=== PATIENT | male | born 1945 | race Caucasian/White ===

== ENCOUNTER → 2017-02-18 | Outpatient (CLI) | payer MEDICARE | END | disposition home or self-care (01) | LOC: CARD 16:16 | PROVIDERS: ATTEND Family Medicine | DX: R06.02 Shortness of breath (principal) | CPT/HCPCS: 94060; 94726; 94729 ==

== ENCOUNTER 2017-06-03 06:32 | Observation (INO) | payer MEDICARE ==
[2017-06-02 10:05] VITALS: BP 123/78
[2017-06-02 10:35] LABS: BASOPHILS % (AUTO) 1 % (0-1); EOSINOPHILS % (AUTO) 2 % (1-7); LYMPHOCYTES # (AUTO) 2.83 x10^3/uL (1-3.4); LYMPHOCYTES % (AUTO) 34 % (22-44); MEAN CORPUSCULAR HEMOGLOBIN 32.9 pg (27.5-34.5); MEAN CORPUSCULAR HGB CONC 34.3 g/dL (33.2-36.2); MEAN CORPUSCULAR VOLUME 95.8 fL (81-97); MEAN PLATELET VOLUME 6.3 fL (7.4-10.4); MONOCYTES % (AUTO) 9 % (2-9); NEUTROPHILS # (AUTO) 4.66 x10^3/uL (1.8-6.8); NEUTROPHILS % (AUTO) 55 % (42-75); PLATELET COUNT 322 x10^3/uL (130-400); RED BLOOD COUNT 4.88 x10^6/uL (4.38-5.82); RED CELL DISTRIBUTION WIDTH 12.8 % (9.4-14.8)
[2017-06-02 10:36] LABS: BASOPHILS # (AUTO) 0.05 x10^3/uL (0-0.1); EOSINOPHILS # (AUTO) 0.19 x10^3/uL (0-0.4); MD NO; MONOCYTES # (AUTO) 0.72 x10^3/uL (0.2-0.8)
[2017-06-02 10:49] LABS: ALANINE AMINOTRANSFERASE 20 U/L (12-78); ALBUMIN 3.8 g/dL (3.4-5.0); ANION GAP 7 mmol/L (5-15); CALCIUM 8.7 mg/dL (8.5-10.1); CHLORIDE 102 mmol/L (98-107); CREATININE 0.84 mg/dL (0.7-1.3)
[2017-06-02 10:51] LABS: ALKALINE PHOSPHATASE 95 U/L (45-117); BILIRUBIN,TOTAL 0.6 mg/dL (0.2-1.0)
[~2017-06-03] VITALS: Ht 185.4 cm; Wt 93.1 kg
[~2017-06-03 06:32] MED LIST: ALBU8.5H8 INH; CARB1TAB PO; CHLO25TA PO; LOSA100T6 PO; UMEC1DIS INH
[2017-06-03] MEDS ORDERED: SODIUM CHLORIDE 0.9% 1,000 ML IV SCH (06:49)
[2017-06-03 07:05] VITALS: BP 123/78
[2017-06-03] MEDS ORDERED: CEFAZOLIN 1,000 MG ONE (07:36)
[2017-06-03] MEDS ORDERED: LIDOCAINE 2%, 20ML ONE (07:36)
[2017-06-03] MEDS ORDERED: FENTANYL PF 100 MCG/2ML ONE (07:36)
[2017-06-03] MEDS ORDERED: MIDAZOLAM 1 MG/ML, 5ML ONE (07:36)
[2017-06-03] MEDS ORDERED: CEFAZOLIN PMX 1GM/50ML 50 ML ONE (07:36)
[2017-06-03] MEDS ORDERED: LOSARTAN 50MG TABLET PO SCH ×2 (09:00→18:00)
[2017-06-03] MEDS ORDERED: HYDROcodone/APAP 5/325 TABLET PO PRN (09:00)
[2017-06-03] MEDS: CARBIDOPA/LEVODOPA 10 MG/100 MG TABLET PO SCH ×3 (09:00→22:32)
[2017-06-03] MEDS: CHLORTHALIDONE 25 MG TABLET PO SCH (09:00)
[2017-06-03] MEDS ORDERED: ACETAMINOPHEN 325 MG TABLET PO PRN (09:00)
[2017-06-03] MEDS ORDERED: ZOLPIDEM 5MG TABLET PO PRN (09:00)
[2017-06-03 09:55] VITALS: BP 120/76
[2017-06-03] MEDS ORDERED: ALBUTEROL SULFATE 2.5 MG/3 ML NPPB PRN (10:30)
[2017-06-03] MEDS: SODIUM CHLORIDE FLUSH 10ML SYR IVF SCH ×2 (10:35→22:33)
[2017-06-03 13:47] VITALS: BP 132/78
[2017-06-03] MEDS: CEFAZOLIN PMX 1GM/50ML 50 ML IVPB SCH (16:04)
[2017-06-03 18:40] VITALS: BP 111/65
[2017-06-04] MEDS: CEFAZOLIN PMX 1GM/50ML 50 ML IVPB SCH (00:18)
[2017-06-04 01:44] VITALS: BP 126/67
[2017-06-04 08:01] VITALS: BP 125/74
[2017-06-04] MEDS: SODIUM CHLORIDE FLUSH 10ML SYR IVF SCH (08:17)
[2017-06-04] MEDS: CHLORTHALIDONE 25 MG TABLET PO SCH (08:17)
[2017-06-04] MEDS: CARBIDOPA/LEVODOPA 10 MG/100 MG TABLET PO SCH (08:18)
== END 2017-06-04 09:10 | disposition home or self-care (01) ==
LOC: CACL 06:32 → ORIP 08:32 → 5SO 09:57 → DCLOUNGE 06-04 09:00
PROVIDERS: ADMIT Internal Medicine Cardiovascular Disease; ATTEND Internal Medicine Cardiovascular Disease
DX: R00.1 Bradycardia, unspecified (principal); R55 Syncope and collapse; I10 Essential (primary) hypertension; E78.2 Mixed hyperlipidemia; Z71.6 Tobacco abuse counseling
CPT/HCPCS: 33208; 36415; 71045; 71046; 80053; 85025; 96365; 96375; 99156; 99157; C1779; C1785; C1892; G0378; J0690; J2250; J3010; J3490

== ENCOUNTER → 2017-08-11 | Outpatient (CLI) | payer MEDICARE | LOC: RAD 08:35 | PROVIDERS: ATTEND Orthopaedic Surgery | DX: M50.323 Other cervical disc degeneration at C6-C7 level (principal); M25.78 Osteophyte, vertebrae; Z95.0 Presence of cardiac pacemaker | CPT/HCPCS: 72141 ==

== ENCOUNTER → 2018-06-03 | Outpatient (CLI) | payer MEDICARE ==
[~2018-06-03] MED LIST changes: +LOSA100T14 PO; -LOSA100T6 PO; +OMNIPAQUE 350 MG/ML, 75ML BOTTLE ONE
[2018-06-03 14:33] LABS: CREATININE 0.88 mg/dL (0.7-1.3)
== END | disposition home or self-care (01) ==
LOC: RAD 13:54
PROVIDERS: ATTEND Family Medicine
DX: R93.89 Abnormal findings on diagnostic imaging of other specified body structures (principal)
CPT/HCPCS: 36415; 71260; 82565; Q9967

== ENCOUNTER → 2018-08-03 | Outpatient (CLI) | payer MEDICARE | END | disposition home or self-care (01) | LOC: CFH 10:02 | PROVIDERS: ATTEND Family Medicine | DX: J98.11 Atelectasis (principal); R91.1 Solitary pulmonary nodule; Z95.0 Presence of cardiac pacemaker; M47.814 Spondylosis without myelopathy or radiculopathy, thoracic region | CPT/HCPCS: 71260; 82565; Q9967 ==

== ENCOUNTER 2019-09-03 11:05 | Day surgery (SDC) | payer MEDICARE ==
[~2019-09-03 11:05] MED LIST changes: -OMNIPAQUE 350 MG/ML, 75ML BOTTLE ONE
[2019-09-03] MEDS ORDERED: OMNIPAQUE 180 MG/ML, 10ML VIAL ONE (13:00)
== END 2019-09-03 16:45 | disposition home or self-care (01) ==
LOC: OUT 11:05
PROVIDERS: ATTEND Nurse Practitioner
DX: M54.16 Radiculopathy, lumbar region (principal); M48.061 Spinal stenosis, lumbar region without neurogenic claudication; I10 Essential (primary) hypertension; J44.9 Chronic obstructive pulmonary disease, unspecified; E78.00 Pure hypercholesterolemia, unspecified; F17.210 Nicotine dependence, cigarettes, uncomplicated; Z79.899 Other long term (current) drug therapy; Z82.3 Family history of stroke; Z80.9 Family history of malignant neoplasm, unspecified
CPT/HCPCS: 62284; 72132; Q9965

== ENCOUNTER → 2020-08-22 | Outpatient (CLI) | payer MEDICARE ==
[~2020-08-22] MED LIST changes: -CARB1TAB PO; +OMNIPAQUE 350 MG/ML, 150 ML BOTTLE ONE; +[UNRECOGNIZED DRUG - CODE] PO
== END | disposition home or self-care (01) ==
LOC: CFH 08:40
PROVIDERS: ATTEND Urology
DX: R31.0 Gross hematuria (principal)
CPT/HCPCS: 74178; Q9967

== ENCOUNTER → 2020-10-27 | Outpatient (CLI) | payer MEDICARE ==
[~2020-10-27] MED LIST changes: +AMLO-150 PO; +ASPI81TA45 PO; +BUDE10.2 INH; +METO25TA35 PO; -OMNIPAQUE 350 MG/ML, 150 ML BOTTLE ONE; +TAMS-11 PO; +TELM40TA PO; +TOPI25TA8 PO
[2020-10-27 08:27] LABS: MICROSCOPIC AUTO
[2020-10-27 08:50] LABS: ALANINE AMINOTRANSFERASE 30 U/L (12-78); ALBUMIN 3.6 g/dL (3.4-5.0); ANION GAP 5 mmol/L (5-15); CHLORIDE 111 mmol/L (98-107)
[2020-10-27 08:52] LABS: ALKALINE PHOSPHATASE 90 U/L (45-117); BILIRUBIN,TOTAL 0.6 mg/dL (0.2-1.0)
== END | disposition home or self-care (01) ==
LOC: STAR 06:53
PROVIDERS: ATTEND Urology
DX: Z01.812 Encounter for preprocedural laboratory examination (principal); Z20.822 Contact with and (suspected) exposure to COVID-19; N32.89 Other specified disorders of bladder
CPT/HCPCS: 36415; 80053; 81001; 87086; 93005; U0003; U0005

== ENCOUNTER 2020-11-02 09:38 | Day surgery (SDC) | payer MEDICARE ==
[~2020-11-02] VITALS: Ht 180.3 cm; Wt 87.1 kg
[2020-11-02 10:07] VITALS: BP 111/73
[2020-11-02] MEDS ORDERED: LACTATED RINGERS 1,000 ML IV SCH (10:30)
[2020-11-02] MEDS ORDERED: CHLORHEXIDINE 15 ML UDC PO ONE (10:30)
[2020-11-02] MEDS ORDERED: GEMCITABINE HCL 1,000 MG in SODIUM CHLORIDE 0.9% 23.7 ML IS ONE (11:30)
[2020-11-02] MEDS ORDERED: MIDAZOLAM 1 MG/ML, 2ML ONE (11:40)
[2020-11-02] MEDS ORDERED: FENTANYL PF 100 MCG/2ML ONE ×2 (11:40→12:55)
[2020-11-02] MEDS ORDERED: CEFAZOLIN 1,000 MG ONE ×2 (11:54)
[2020-11-02] MEDS ORDERED: DEXAMETHASONE 4 MG/ML, 1ML ONE (11:54)
[2020-11-02] MEDS ORDERED: PROPOFOL 10 MG/ML, 20ML ONE (11:54)
[2020-11-02] MEDS ORDERED: ONDANSETRON 2MG/ML, 2ML ONE (11:54)
[2020-11-02] MEDS ORDERED: LIDOCAINE-MPF 2% ,5ML ONE (11:54)
[2020-11-02] MEDS ORDERED: ONDANSETRON 2MG/ML, 2ML IVPush PRN (12:30)
[2020-11-02] MEDS ORDERED: DIAZEPAM 5 MG/ML, 2ML IVPush PRN (12:30)
[2020-11-02] MEDS ORDERED: hydrALAzine 20 MG/ML, 1ML IV PRN (12:30)
[2020-11-02] MEDS ORDERED: ONDANSETRON 2MG/ML, 2ML IV PRN (12:30)
[2020-11-02] MEDS ORDERED: HYDROmorphone 1 MG/ML, 1ML INJ IVPush PRN (12:30)
[2020-11-02] MEDS ORDERED: HYDROcodone/APAP 5/325 TABLET PO PRN (12:30)
[2020-11-02] MEDS ORDERED: LABETALOL 5MG/ML, 20ML IV PRN (12:30)
[2020-11-02] MEDS ORDERED: ACETAMINOPHEN 325 MG TABLET PO PRN (12:30)
[2020-11-02] MEDS ORDERED: MEPERIDINE/PF 25MG/0.5ML IVPush PRN (12:30)
[2020-11-02] MEDS ORDERED: OXYcodone 5 MG/5 ML ORAL.SOL UDC PO PRN (12:30)
[2020-11-02] MEDS: FENTANYL PF 100 MCG/2ML IV PRN ×2 (12:56→13:03)
== END 2020-11-02 14:35 | disposition home or self-care (01) ==
LOC: OUT 09:38
PROVIDERS: ATTEND Urology
DX: D49.4 Neoplasm of unspecified behavior of bladder (principal); C67.1 Malignant neoplasm of dome of bladder; N40.0 Benign prostatic hyperplasia without lower urinary tract symptoms; I10 Essential (primary) hypertension; E78.5 Hyperlipidemia, unspecified; J44.9 Chronic obstructive pulmonary disease, unspecified; Z95.0 Presence of cardiac pacemaker
CPT/HCPCS: 51720; 52234; 88305; J0690; J1100; J2250; J2405; J2704; J3010; J7120; J9201